=== PATIENT | female | born 1960 | race Asian ===

== ENCOUNTER 2019-11-13 12:04 | Emergency (ER) | payer MEDICARE, BC ==
[2019-11-13] MEDS ORDERED: Sodium Chloride 0.9% 10 ML Syringe FLUSH PRN (12:26)
[2019-11-13] MEDS ORDERED: Pantoprazole 40 MG Vial IVPUSH ONE (12:40)
--- NOTE | 2019-11-13 12:46 | EDM.PDOC ---
ED HPI GENERAL MEDICAL PROBLEM - General Chief Complaint: Chest Pain Stated Complaint: CHEST PAIN X 3 DAYS SENT BY SUSHMA Time Seen by Provider: 11/13/19 12:21 Source of Information: Reports: Patient, RN Notes Reviewed History Limitations: Reports: No Limitations - History of Present Illness INITIAL COMMENTS - FREE TEXT/NARRATIVE: Patient is a 59-year-old female who presents to the ED for evaluation of intermittent chest pain for the past 3 days. Patient notes that she has a prior history of a heart attack in 2005, and she does still currently see a food trades assistants, Dr. Slaughter in [place] next visit is in December. Patient notes that she had an angiogram done 2 to 3 years ago, and there was no reason to have any stents placed. Patient notes that the pain that has been intermittent , is more of a mid central chest discomfort, and epigastric burning type sensation. She states that the pain also is in her left upper back, underneath her left shoulder blade, and does radiate down her left arm and she is noticed some tingling into her left fingers as well. Patient states that she has had some diaphoresis episodes as well, she states this is new for her, as normally she is fairly cold or has chills. She denies any fevers however. Patient states she gets a little bit short of breath with the pain episodes. Patient notes that she has had multiple plastic surgeries, with the most recent being July 29 at [facility], for a melanoma removal on her face. Patient does present to the ER today with what looks like a skin graft to her left cheek, and a tracheostomy tube in place with a speaking valve. Middle Chest Pain Score (Numeric/FACES): 5 - Related Data Allergies Allergy/AdvReac Type Severity Reaction Status Date / Time egg Allergy Hives Verified 11/13/19 12:24 Penicillins Allergy Mouth Sores Verified 11/13/19 12:24 Poultry Allergy Hives Verified 11/13/19 12:24 Home Meds: Home Meds Aspirin [Ecotrin EC] 81 mg PO DAILY 11/13/19 [History] Gabapentin [Neurontin] 100 mg PO TID 11/13/19 [History] Levothyroxine Sodium [Synthroid] 75 mcg PO DAILY 11/13/19 [History] Lisinopril/Hydrochlorothiazide [Lisinopril-Hctz 20-25 mg Tab] 20 - 25 mg PO DAILY 11/13/19 [History] Loratadine [Claritin] 10 mg PO DAILY 11/13/19 [History] Metoprolol Succinate 50 mg PO BID 11/13/19 [History] Potassium Chloride 20 meq PO BID 11/13/19 [History] amLODIPine [Norvasc] 5 mg PO DAILY 11/13/19 [History] atorvaSTATin [Lipitor] 20 mg PO DAILY 11/13/19 [History] Past Medical History Cardiovascular History: Reports: Hypertension, [place] (2005, did not require stents) Respiratory History: Reports: Other (See Below) (tracheostomy tube in place) Endocrine/Metabolic History: Reports: Hypothyroidism Dermatologic History: Reports: Melanoma (with 4 resultant facial/plastic reconstruction surgeries) - Past Surgical History HEENT Surgical History: Reports: Other (See Below) (plastic reconstruction surgery) Cardiovascular Surgical History: Reports: Other (See Below) (angiogram) Respiratory Surgical History: Reports: Tracheostomy Oncologic Surgical History: Reports: Other (See Below) (removal of melanoma on left face) Dermatological Surgical History: Reports: Plastic Surgical Reconstruction/Repair , Skin Graft (?Left cheek) ED ROS GENERAL - Review of Systems Review Of Systems: See Below Constitutional: Reports: Chills, Diaphoresis (2 episodes since 11/10). Denies: Fever Respiratory: Reports: Shortness of Breath (with pain episodes) Cardiovascular: Reports: Chest Pain (mid central chest pain) GI/Abdominal: Reports: Other (heartburn). Denies: Constipation, Diarrhea, Nausea, Vomiting ED EXAM, GENERAL - Physical Exam Exam: See Below Exam Limited By: No Limitations General Appearance: Alert, WD/WN, No Apparent Distress Eye Exam: Bilateral Eye: EOMI, Normal Inspection, PERRL Throat/Mouth: Normal Inspection, Normal Lips, Normal Teeth, Normal Gums, Normal Voice, No Airway Compromise Head: Atraumatic, Normocephalic, Other (skin graft to left cheek, multiple scars and scar tissue from facial reconstruction surgeries) Neck: Normal Inspection Respiratory/Chest: No Respiratory Distress, Lungs Clear, Normal Breath Sounds, No Accessory Muscle Use, Chest Non-Tender Cardiovascular: Normal Peripheral Pulses, Regular Rate, Rhythm, No Edema, No Murmur Peripheral Pulses: 3+: Radial (L), Radial (R) GI/Abdominal: Normal Bowel Sounds, Soft, Non-Tender, No Distention, No Mass Extremities: Normal Inspection, Normal Range of Motion, Normal Capillary Refill Neurological: Alert, Oriented, CN II-XII Intact (grossly), Normal Cognition, No Motor/Sensory Deficits Psychiatric: Normal Affect, Normal Mood Skin Exam: Warm, Dry, Intact, Normal Color, No Rash EKG INTERPRETATION EKG Date: 11/13/19 Time: 12:59 Rhythm: NSR Rate (Beats/Min): 59 [place]: Normal P-Wave: Present QRS: Normal ST-T: Normal QT: Normal Comparison: NA - No Prior EKG EKG Interpretation Comments: Reviewed with Dr. Perales. Course - Vital Signs Last Recorded V/S: Last Vital Signs Temp 96.6 F 11/13/19 12:14 Pulse 67 11/13/19 12:14 Resp 16 11/13/19 12:14 BP 141/88 H 11/13/19 12:14 Pulse Ox 99 11/13/19 12:14 - Orders/Labs/Meds Orders: Active Orders 24 hr Category Date Time Status EKG Documentation Completion [RC] STAT Care 11/13/19 12:26 Ordered Peripheral IV Care [RC] . DIRECTED Care 11/13/19 12:26 Ordered Chest 1V Frontal [CR] Stat Exams 11/13/19 12:26 Ordered Sodium Chloride 0.9% [Saline Flush] Med 11/13/19 12:26 Ordered 10 ml FLUSH ASDIRECTED PRN Peripheral IV Insertion Adult [OM.PC] Stat Oth 11/13/19 12:26 Ordered Medication Orders Sodium Chloride (Saline Flush) 10 ml FLUSH ASDIRECTED PRN PRN Reason: Keep Vein Open Labs: Laboratory Tests 11/13/19 11/13/19 11/13/19 Range/Units 12:36 12:36 12:36 WBC 5.31 (3.98-10.04) K/mm3 RBC 4.50 (3.98-5.22) M/mm3 Hgb 13.4 (11.2-15.7) gm/dl Hct 39.5 (34.1-44.9) % MCV 87.8 (79.4-94.8) fl MCH 29.8 (25.6-32.2) pg MCHC 33.9 (32.2-35.5) g/dl RDW Std Deviation 39.7 (36.4-46.3) fL Plt Count 352 (182-369) K/mm3 MPV 8.8 L (9.4-12.3) fl Neutrophils % (Manual) 52 (40-60) % Band Neutrophils % 0 (0-10) % Lymphocytes % (Manual) 33 (20-40) % Atypical Lymphs % 0 % Monocytes % (Manual) 10 (2-10) % Eosinophils % (Manual) 4 (0.7-5.8) % Basophils % (Manual) 1 (0.1-1.2) Platelet Estimate Adequate RBC Morph Comment Normal PT 9.9 (9.7-12.0) SECONDS INR < 0.93 APTT 26 (22-31) SECONDS D-Dimer, Quantitative (0.19-0.50) mg/L Sodium 141 (136-145) mEq/L Potassium 3.5 (3.5-5.1) mEq/L Chloride 102 (98-107) mEq/L Carbon Dioxide 27 (21-32) mEq/L Anion Gap 15.5 H (5-15) BUN 16 (7-18) mg/dL Creatinine 0.9 (0.55-1.02) mg/dL Est Cr Clr Drug Dosing 58.12 mL/min Estimated GFR (MDRD) > 60 (>60) mL/min BUN/Creatinine Ratio 17.8 (14-18) Glucose 87 (74-106) mg/dL Calcium 9.7 (8.5-10.1) mg/dL Magnesium 1.9 (1.8-2.4) mg/dl Total Bilirubin 0.4 (0.2-1.0) mg/dL AST 40 H (15-37) U/L ALT 52 (14-59) U/L Alkaline Phosphatase 95 (46-116) U/L Troponin I < 0.017 (0.00-0.056) ng/mL Total Protein 8.0 (6.4-8.2) g/dl Albumin 4.1 (3.4-5.0) g/dl Globulin 3.9 gm/dL Albumin/Globulin Ratio 1.1 (1-2) 11/13/ Range/Units 12:36 WBC (3.98-10.04) K/mm3 RBC (3.98-5.22) M/mm3 Hgb (11.2-15.7) gm/dl Hct (34.1-44.9) % MCV (79.4-94.8) fl MCH (25.6-32.2) pg MCHC (32.2-35.5) g/dl RDW Std Deviation (36.4-46.3) fL Plt Count (182-369) K/mm3 MPV (9.4-12.3) fl Neutrophils % (Manual) (40-60) % Band Neutrophils % (0-10) % Lymphocytes % (Manual) (20-40) % Atypical Lymphs % % Monocytes % (Manual) (2-10) % Eosinophils % (Manual) (0.7-5.8) % Basophils % (Manual) (0.1-1.2) Platelet Estimate RBC Morph Comment PT (9.7-12.0) SECONDS INR APTT (22-31) SECONDS D-Dimer, Quantitative 0.62 H (0.19-0.50) mg/L Sodium (136-145) mEq/L Potassium (3.5-5.1) mEq/L Chloride (98-107) mEq/L Carbon Dioxide (21-32) mEq/L Anion Gap (5-15) BUN (7-18) mg/dL Creatinine (0.55-1.02) mg/dL Est Cr Clr Drug Dosing mL/min Estimated GFR (MDRD) (>60) mL/min BUN/Creatinine Ratio (14-18) Glucose (74-106) mg/dL Calcium (8.5-10.1) mg/dL Magnesium (1.8-2.4) mg/dl Total Bilirubin (0.2-1.0) mg/dL AST (15-37) U/L ALT (14-59) U/L Alkaline Phosphatase (46-116) U/L Troponin I (0.00-0.056) ng/mL Total Protein (6.4-8.2) g/dl Albumin (3.4-5.0) g/dl Globulin gm/dL Albumin/Globulin Ratio (1-2) Meds: Medications Generic Name Dose Route Start Last Admin Trade Name Freq PRN Reason Stop Dose Admin Sodium Chloride 10 ml 11/13/19 12:26 Saline Flush FLUSH ASDIRECTED PRN Keep Vein Open Discontinued Medications Generic Name Dose Route Start Last Admin Trade Name Freq PRN Reason Stop Dose Admin Pantoprazole Sodium 40 mg 11/13/19 12:40 Protonix Iv IVPUSH 11/13/19 12:41 ONETIME ONE - Re-Assessments/Exams Free Text/Narrative Re-Assessment/Exam: 11/13/19 12:49 Patient presents to the ED for the evaluation of chest pain. Due to the history of her having a heart attack in 2005, a cardiac work-up will be done, and a d-dimer will be obtained as well, as the patient specifically was worried about a pulmonary embolus, however I believe this is very unlikely, however she is not on a blood thinner. 11/13/19 13:21 Patient's labs have been resulted, and demonstrate no worrisome abnormalities. D-dimer is mildly elevated at 0.62. I did discuss this with Dr. Perales and he would recommend not going forward with the angio CT of the chest to rule out PE , as it is still well within 10% of the upper limits of normal, and she does not have any other worrisome symptoms that would suggest she could be suffering from a PE. EKG also demonstrates no acute ischemic change, and she had a normal trop. Chest x-ray also appears to be within normal limits. At this time it is likely that the patient was having some mild heartburn, that may have been causing some of her symptoms. I did give her 40 of IV Protonix for initial management, will recommend she take omeprazole daily to see if this does not help some of the symptoms. Departure - Departure Time of Disposition: 13:27 Disposition: Home, Self-Care 01 Condition: Fair Clinical Impression: Chest discomfort, Heartburn Instructions: Nonspecific Chest Pain, [id number], Heartburn, [id number] Referrals: Anne Cordon NP [Primary Care Provider] - Forms: ED Department Discharge Additional Instructions: You were evaluated in the ER today regarding your mid central chest discomfort. Your laboratory evaluation demonstrated that you are not having a heart attack, your d-dimer was mildly elevated, however it is not elevated to a level that would be worrisome for a pulmonary embolus or blood clot in your lung. Your EKG was within normal limits, and your chest x-ray also was within normal limits. Your symptoms may likely be due to heartburn or GERD in nature, you were given 40 mg IV Protonix, which is an IV at acid. Recommend you obtain some over-the- counter omeprazole, and take as directed on the box. You will have to take this for a few days to begin to feel the full effect. Please return to the ER at any time if your symptoms change or worsen. Sepsis Event Note - Evaluation Sepsis Screening Result: No Definite Risk - Focused Exam Vital Signs: Vital Signs Temp Pulse Resp BP Pulse Ox 11/13/19 12:14 96.6 F 67 16 141/88 H 99 Date Exam was Performed: 11/13/19 Time Exam was Performed: 13:20 - My Orders Last 24 Hours: My Active Orders 11/13/19 12:26 EKG Documentation Completion [RC] STAT Peripheral IV Care [RC] . DIRECTED Chest 1V Frontal [CR] Stat Sodium Chloride 0.9% [Saline Flush] 10 ml FLUSH ASDIRECTED PRN Peripheral IV Insertion Adult [OM.PC] Stat - Assessment/Plan Last 24 Hours: My Active Orders 11/13/19 12:26 EKG Documentation Completion [RC] STAT Peripheral IV Care [RC] . DIRECTED Chest 1V Frontal [CR] Stat Sodium Chloride 0.9% [Saline Flush] 10 ml FLUSH ASDIRECTED PRN Peripheral IV Insertion Adult [OM.PC] Stat
--- NOTE | 2019-11-16 07:12 | CR ---
Chest: Portable view of the chest was obtained. Comparison: No prior chest imaging. Heart size and mediastinum are within normal limits. Endotracheal tube is seen with tip lying slightly below the inferior level of the clavicles in satisfactory position. Lungs are clear with no acute parenchymal change. Bony structures are grossly intact. Impression: 1. Tip of endotracheal tube is satisfactory in position. 2. Nothing acute is otherwise seen on portable chest x-ray. Diagnostic code #2 This report was dictated in [place] Standard Time
== END 2019-11-13 14:22 | disposition home or self-care (01) ==
LOC: JD.ED 12:04
DX: R07.89 Other chest pain (principal); R12 Heartburn; I10 Essential (primary) hypertension; I25.2 Old myocardial infarction; Z88.0 Allergy status to penicillin; Z91.012 Allergy to eggs; Z91.018 Allergy to other foods; Z79.82 Long term (current) use of aspirin; Z79.899 Other long term (current) drug therapy
CPT/HCPCS: 36415; 71045; 80053; 83735; 84484; 85007; 85027; 85379; 85610; 85730; 93005; 96374; 99285; C9113; 93010; 99284